=== PATIENT | female | born 1950 | race Caucasian/White ===

== ENCOUNTER → 2016-05-10 | Outpatient (CLI) | payer BC ==
[~2016-05-10] MED LIST: ATOR-22 PO; CETI10TA84 PO; CHOL400C PO; GLUCTAB32 PO; MACU HEALTH PO; MULT-614 PO; MULT-663 PO
--- NOTE | 2016-05-10 16:35 | MAMMOGRAPHY REPORT ---
BILATERAL DIGITAL SCREENING MAMMOGRAM WITH CAD: 05/10/2016 CLINICAL HISTORY: Routine screening examination. TECHNIQUE: Bilateral CC and MLO views were obtained. Current study was also evaluated with a Compu ter Aided Detection (CAD) system. COMPARISON: Comparison is made to exams dated: 05/08/2015 mammogram, 05/07/2014 mammogram, 05/06/2013 mammogram, 05/14/2013 ultrasound, 05/04/2012 mammogram, and 04/29/2011 mammogram - [facility]. BREAST COMPOSITION: The tissue of both breasts is almost entirely fatty. FINDINGS: The parenchymal pattern is unchanged. There are benign appearing calcifications in the l ateral right breast. No developing mass, architectural distortion or cluster of suspicious microcal cifications is seen in either breast. IMPRESSION: ACR BI-RADS CATEGORY 2: BENIGN There is no mammographic evidence of malignancy. A 1 year screening mammogram is recommended. The p atient will receive written notification of the results. Approximately 10% of breast cancers are not detected with mammography. A negative mammographic repor t should not delay biopsy if a clinically suggestive mass is present. Jocelyn De Jesus M.D. ay/:05/10/2016 15:15:33 Teaching Manager: Rosa CLINE(Shun)(Chai), [facility] letter sent: Normal 1/2 BI-RADS Code: ACR BI-RADS Category 2: Benign
== END | disposition home or self-care (01) ==
LOC: C.MAMM 10:17
PROVIDERS: ATTEND Obstetrics & Gynecology
DX: Z12.31 Encounter for screening mammogram for malignant neoplasm of breast (principal)

== ENCOUNTER → 2016-09-08 | Outpatient (CLI) | payer BC ==
[2016-09-08 17:08] LABS: MANUAL MICROSCOPIC REQUIRED? NO; REVIEW REQ? NO; URINE APPEARANCE CLEAR (CLEAR); URINE BILIRUBIN NEG (NEG); URINE COLOR YELLOW; URINE EPITHELIAL CELL AUTO 0-5 /lpf (0-5); URINE NITRITE NEG (NEG); URINE PH 5.5 (4.5-7.5); URINE SPECIFIC GRAVITY 1.019 (1.000-1.030); UROBILINOGEN NEG (NEG)
== END | disposition home or self-care (01) ==
LOC: C.LABBC 11:10
PROVIDERS: ATTEND Physician Assistant Medical
DX: R39.9 Unspecified symptoms and signs involving the genitourinary system (principal)

== ENCOUNTER → 2016-09-20 | Outpatient (CLI) | payer BC ==
[~2016-09-20] MED LIST changes: +OPTIRAY 320 IV PRN
--- NOTE | 2016-09-20 13:59 | DIAGNOSTIC IMAGING REPORT ---
ABD/PELVIS COMBO HISTORY:66 [id number] Abdominal painR31.9 Hematuria"hematuria protocol" COMPARISON: CT chest 10/14/2013. TECHNIQUE: Multiple axial CT images of the abdomen and pelvis were obtained utilizing a hematuria protocol both without and with the use of 94 mL Optiray 320. Delayed images through the level of the bladder were also obtained. FINDINGS: There is minimal dependent bibasilar atelectasis. There is a subcentimeter calcified granuloma of the basal right lower lobe. Linear 7 x 5 mm noncalcified nodule of the lateral basal segment right lower lobe appears unchanged from 10/14/2013 compatible with benign etiology. Calcified right hilar lymph nodes are seen. The inferior cardiac chambers are unremarkable. The liver, gallbladder, adrenal glands and pancreas are unremarkable. Calcified granulomas are seen throughout the splenic parenchyma. No renal calculi are identified. Urinary bladder is within normal limits. No urothelial mass or obstructive process identified to explain the patient's hematuria. Ureters also appear normal. The uterus and adnexa appear age appropriate. There is mild mixed plaquing of the abdominal aorta. There is no bulky retroperitoneal adenopathy. There is no bowel extraction. Noninflamed colonic diverticula are noted. The appendix contains high attenuating material without inflammatory changes. There is a small fat filled umbilical hernia with diastases of 1.7 cm. An additional fat filled ventral midline abdominal wall hernia is seen a few centimeters superiorly. Advanced multilevel endplate degenerative changes are seen throughout the spine. IMPRESSION: 1. No acute intra-abdominal or intrapelvic abnormality identified. No nephrolithiasis, obstructive uropathy or other findings to explain the patient's hematuria. 2. High attenuating material within the appendiceal lumen may reflect appendicolith or inspissated stool without evidence of acute appendicitis. 3. Small fat filled ventral abdominal wall hernias. 5. Prior granulomatous disease. 6. Colonic diverticulosis. The above report was generated using voice recognition software. It may contain grammatical, syntax or spelling errors. Electronically signed by: Urban Reyes M.D. 09/20/2016 1:57 PM Dictated Date/Time: 09/20/2016 1:48 PM
== END | disposition home or self-care (01) ==
LOC: C.CTS 13:12
PROVIDERS: ATTEND Physician Assistant Medical
DX: R31.9 Hematuria, unspecified (principal); R10.9 Unspecified abdominal pain; K57.30 Diverticulosis of large intestine without perforation or abscess without bleeding

== ENCOUNTER → 2016-10-18 | Outpatient (CLI) | payer BC ==
[~2016-10-18] MED LIST changes: -OPTIRAY 320 IV PRN
== END | disposition home or self-care (01) ==
LOC: C.PATHSPEC 10:26
PROVIDERS: ATTEND Nurse Practitioner Adult Health
DX: R31.29 Other microscopic hematuria (principal)

== ENCOUNTER → 2017-05-12 | Outpatient (CLI) | payer BC ==
--- NOTE | 2017-05-12 13:35 | MAMMOGRAPHY REPORT ---
BILATERAL DIGITAL SCREENING MAMMOGRAM TOMOSYNTHESIS WITH CAD: 05/12/2017 CLINICAL HISTORY: Routine screening. Patient has no complaints. TECHNIQUE: Breast tomosynthesis in addition to standard 2D mammography was performed. Current study was also evaluated with a Computer Aided Detection (CAD) system. COMPARISON: Comparison is made to exams dated: 05/10/2016 mammogram, 05/08/2015 mammogram, 05/07/2014 m ammogram, 11/18/2013 mammogram, 05/14/2013 mammogram, and 05/06/2013 mammogram - [facility]. BREAST COMPOSITION: The tissue of both breasts is almost entirely fatty. FINDINGS: No suspicious masses, calcifications, or areas of architectural distortion are noted in ei ther breast. There has been no significant interval change compared to prior exams. Scattered bilater al benign-appearing calcifications are not significantly changed. IMPRESSION: ACR BI-RADS CATEGORY 2: BENIGN There is no mammographic evidence of malignancy. A 1 year screening mammogram is recommended. The pa tient will receive written notification of the results. Approximately 10% of breast cancers are not detected with mammography. A negative mammographic report should not delay biopsy if a clinically suggestive mass is present. Lola Grossman M.D. /:05/12/2017 12:17:57 Signs And Displays Salesperson: Ida CLINE(Shun)(Chai)(BRANDI), [facility] letter sent: Normal 1/2 BI-RADS Code: ACR BI-RADS Category 2: Benign
== END | disposition home or self-care (01) ==
LOC: C.MAMM 10:06
PROVIDERS: ATTEND Obstetrics & Gynecology
DX: Z12.31 Encounter for screening mammogram for malignant neoplasm of breast (principal)

== ENCOUNTER → 2017-10-10 | Outpatient (CLI) | payer BC | END | disposition home or self-care (01) | LOC: C.MAMM 11:12 | PROVIDERS: ATTEND Internal Medicine Geriatric Medicine | DX: M85.851 Other specified disorders of bone density and structure, right thigh (principal) ==